=== PATIENT | male | born 1970 | race Caucasian/White ===

== ENCOUNTER 2017-05-26 01:24 | Emergency (ER) | payer BC, OTHER ==
--- NOTE | 2017-05-26 01:39 | ED.PDOC ---
History of Present Illness - General Chief Complaint: General Stated Complaint: cough /congestion Time Seen by Provider: 05/26/17 01:37 Source: patient Exam Limitations: no limitations - History of Present Illness Comments: Deni Christie 47 y/o male stated that he has slightly productive cough for the last one and nasal congestion and feels like getting worse Timing/Duration: other - 7 days Cough Quality/Degree: productive cough - slightly Possible Cause: no prior episodes Improving Factors: nothing Worsening Factors: nothing Associated Symptoms: other - see hpi Allergies/Adverse Reactions: Allergies NO KNOWN ALLERGY Allergy (Verified 05/26/17 01:48) Home Medications: Ambulatory Orders Albuterol Inhaler [Ventolin Hfa Inhaler] 2 puff IN Q4HR PRN #1 inh 05/26/17 Benzonatate Perles [Tessalon Perles] 200 mg PO BID PRN #30 cap 05/26/17 Review of Systems - Review of Systems Constitutional: States: no symptoms reported EENTM: States: see HPI, nose congestion Respiratory: States: see HPI, cough Cardiology: States: no symptoms reported Gastrointestinal/Abdominal: States: no symptoms reported Genitourinary: States: no symptoms reported Musculoskeletal: States: no symptoms reported Skin: States: no symptoms reported Neurological: States: no symptoms reported Past Medical History (General) - Patient Medical History Hx Hypertension: Yes Hx Diabetes: Yes Surgical History: appendectomy - Social History Hx Tobacco Use: No Hx Chewing Tobacco Use: No Hx Alcohol Use: No Hx Substance Use: No Hx Physical Abuse: No Hx Emotional Abuse: No Hx Suspected Abuse: No - Activities of Daily Living Patient Lives Alone: No Family Medical History - Family History Father Hx Family Hypertension: Yes Hx Family Diabetes: Yes Mother Family History: Unknown Physical Exam - Physical Exam General Appearance: Alert, No apparent distress Eye Exam: bilateral normal ENT Exam: pharynx normal, nasal congestion - right >left, nasal drainage - clear Neck: full range of motion, supple Respiratory: chest non-tender, no respiratory distress, wheezing - mild Cardiovascular/Chest: regular rate, rhythm, no murmur Gastrointestinal/Abdominal: non tender, soft, no organomegaly Extremity: no pedal edema, no calf tenderness Neurologic: alert, normal mood/affect, oriented x 3 Skin Exam: normal color, warm/dry Lymphatic: no adenopathy Progress - Progress Progress: 05/26/17 02:25 Last Vital Signs Temp 95.2 F L 05/26/17 01:48 Pulse 83 05/26/17 02:14 Resp 20 05/26/17 02:14 BP 171/98 05/26/17 01:48 Pulse Ox 92 L 05/26/17 02:14 05/26/17 01:54 Oxymetazoline Nasal [place] [Afrin Nasal [place]] 2 spray BNAS BID PRN SVN/Updraft Therapy .PRN 05/26/17 01:55 SVN/Updraft Therapy .ONCE 05/26/17 09:00 [facility] Daily Laboratory Results - last 24 hr 05/26/17 02:05 WBC 11.9 H RBC 5.59 Hgb 15.9 Hct 47.3 MCV 84.6 MCH 28.5 MCHC 33.6 RDW 13.1 Plt Count 244 MPV 8.8 Absolute Neuts (auto) 5.60 Absolute Lymphs (auto) 4.80 H Absolute Monos (auto) 0.90 H Absolute Eos (auto) 0.50 H Absolute Basos (auto) 0.10 Neutrophils % 46.8 Lymphocytes % 40.4 Monocytes % 7.5 Eosinophils % 4.4 Basophils % 0.9 - EKG/XRAY/CT XRAY: chest - no acute abnormality Departure - Departure Clinical Impression: Upper respiratory infection, viral, Reactive airway disease that is not asthma Time of Disposition: 02:27 Disposition: Discharge to Home or Self Care Condition: Good Departure Forms: ED Discharge - Pt. Copy, Patient Portal Self Enrollment Instructions: DI for Viral Upper Respiratory Infection -- Adult, DI for Reactive Airway Disease-Adult Prescriptions: Albuterol Inhaler [Ventolin Hfa Inhaler] 2 puff IN Q4HR PRN #1 inh PRN Reason: Wheezing Benzonatate Perles [Tessalon Perles] 200 mg PO BID PRN #30 cap PRN Reason: Cough Home Medications: Ambulatory Orders Albuterol Inhaler [Ventolin Hfa Inhaler] 2 puff IN Q4HR PRN #1 inh 05/26/17 Benzonatate Perles [Tessalon Perles] 200 mg PO BID PRN #30 cap 05/26/17 Additional Instructions: May use Afrin nose spray 2 sprays am/pm as needed for nasal congestion 3 days on 3 days off;OVER THE COUNTER MEDICATIONS:Delsym Liquid one teaspoon am/pm for cough;Benadryl capsules one capsule at bedtime for cough and congestion
[2017-05-26] MEDS ORDERED: IPRATROPIUM/ALBUTEROL 3 ML VIAL NEB ONE (01:54)
[2017-05-26] MEDS ORDERED: OXYMETAZOLINE NASAL SPRAY 15 ML BTTL BNAS PRN (01:54)
[2017-05-26 01:55] VITALS: O2SAT 92
[2017-05-26] MEDS ORDERED: diphenhydrAMINE HCL 25 MG CAP PO ONE (02:17)
[2017-05-26] MEDS ORDERED: BENZONATATE PERLES 100 MG CAP PO ONE (02:17)
--- NOTE | 2017-05-26 02:21 | RAD ---
EXAM DESCRIPTION: Chest,2 Views CLINICAL HISTORY: wheezing COMPARISON: None. FINDINGS: Frontal and lateral views of the chest. The cardiomediastinal silhouette has normal size and contour. No consolidation, pneumothorax, or pleural effusion. No displaced rib fractures identified. Upper abdominal soft tissues are unremarkable. IMPRESSION: 1. No acute pulmonary process identified. Electronically signed by: Rene Ceballos 05/26/2017 2:19 AM [facility]
[2017-05-26 02:46] VITALS: BP 152/81; TEMP 98
== END 2017-05-26 02:46 | disposition home or self-care (01) ==
LOC: ER 01:24
DX: J06.9 Acute upper respiratory infection, unspecified (principal); J98.4 Other disorders of lung; E11.9 Type 2 diabetes mellitus without complications; I10 Essential (primary) hypertension
CPT/HCPCS: 36415; 71020; 85025; 94640; J7620; Q0163